=== PATIENT | female | born 1930 | race Caucasian/White ===

== ENCOUNTER 2020-04-14 15:44 | Emergency (ER) | payer OTHER ==
[~2020-04-14] VITALS: Ht 149.9 cm; Wt 49.9 kg
[~2020-04-14 15:44] MED LIST: ZEGERID 20 MG C1 CAP
[2020-04-14] MEDS ORDERED: TOPROL XL50 M1 (15:56)
== END 2020-04-14 19:13 | disposition home or self-care (01) ==
LOC: ER 15:44
DX: S01.01XA Laceration without foreign body of scalp, initial encounter (principal); M54.2 Cervicalgia; W01.198A Fall on same level from slipping, tripping and stumbling with subsequent striking against other object, initial encounter; Y93.89 Activity, other specified; Y92.018 Other place in single-family (private) house as the place of occurrence of the external cause; Y99.8 Other external cause status